=== PATIENT | female | born 1980 | race African-American/Black ===

== ENCOUNTER 2021-05-09 02:47 | Emergency (ER) | payer OTHER ==
[2021-05-09] MEDS ORDERED: DEXAMETHASONE SOD PHOSPHATE 10 MG/1 ML VIAL ONE (02:54)
[2021-05-09] MEDS ORDERED: ALBUTEROL SO4 2.5/IPRATROPIUM 0.5 INH SOL 3 ML VIAL.NEB. NEB ONE ×3 (02:54→03:29)
[2021-05-09 03:11] VITALS: TEMP 97.4; BMI 34.2
[2021-05-09] MEDS ORDERED: ALBUTEROL SO4 HFA INHALER IH ONE ×2 (03:24→03:29)
[2021-05-09 04:52] VITALS: BP 111/58; PULSE 79
== END 2021-05-09 05:04 | disposition home or self-care (01) ==
LOC: JER 02:47
PROC: 3E0F7GC Introduction of Other Therapeutic Substance into Respiratory Tract, Via Natural or Artificial Opening (ICD-10-PCS; principal; 2021-05-09)
DX: J45.31 Mild persistent asthma with (acute) exacerbation (principal)
CPT/HCPCS: 94640; 99283-25

== ENCOUNTER 2023-05-27 13:15 | Emergency (ER) | payer OTHER ==
[2023-05-27 13:33] VITALS: BP 112/66; PULSE 78; RESP 18; TEMP 98.7; BMI 34.2
[2023-05-27 13:43] LABS: HEMATOCRIT 25.5 % (32.4-45.2); HEMOGLOBIN 7.8 G/dL (10.7-15.3); MCH 22.6 pg (25.7-33.7); MCHC 30.5 g/dl (32.0-36.0); MEAN CELL VOLUME 74.2 fl (80-96); MEAN PLT VOLUME 8.7 fl (7.5-11.1); PLATELET COUNT 577.7 10^3/uL (134-434); RBC 3.44 10^6/uL (3.60-5.2); RDW 18.9 % (11.6-15.6)
[2023-05-27 14:16] LABS: ALBUMIN 3.9 g/dl (3.4-5.0); BILIRUBIN,TOTAL 0.5 mg/dl (0.2-1); CALCIUM 9.3 mg/dl (8.5-10.1); CREATININE 0.8 mg/dl (0.6-1.3); POTASSIUM 4.3 mmol/L (3.5-5.1); TOT PROT 6.9 g/dl (6.4-8.2)
[2023-05-27 14:24] LABS: ANISOCYTOSIS 2+; MACROCYTOSIS 1+
[2023-05-27 14:25] LABS: OVALOCYTE 2+; PLATELET ESTIMATE INCREASED; TARGET CELLS 1+; TEAR DROP CELLS 2+
== END 2023-05-27 14:20 | disposition home or self-care (01) ==
LOC: FER 13:15
DX: D64.9 Anemia, unspecified (principal)
CPT/HCPCS: 36415; 80053; 85027; 99285-25